=== PATIENT | female | born 1995 | race Caucasian/White ===

== ENCOUNTER 2017-04-28 10:09 | Emergency (ER) | payer OTHER ==
[~2017-04-28] VITALS: Ht 162.6 cm; Wt 50.0 kg
[2017-04-28] MEDS ORDERED: NORCO 325 MG-51 TAB PO (11:12)
[2017-04-28 12:02] VITALS: BP 118/88; PULSE 94; TEMP 18
== END 2017-04-28 12:02 | disposition home or self-care (01) ==
LOC: COL.ER 10:09
DX: S42.002A Fracture of unspecified part of left clavicle, initial encounter for closed fracture (principal); W01.0XXA Fall on same level from slipping, tripping and stumbling without subsequent striking against object, initial encounter; Y92.410 Unspecified street and highway as the place of occurrence of the external cause; Y93.02 Activity, running

== ENCOUNTER 2017-05-24 16:45 | Emergency (ER) | payer OTHER ==
[~2017-05-24] VITALS: Ht 162.6 cm; Wt 48.2 kg
[~2017-05-24 16:45] MED LIST: NORCO 325 MG-51 TAB PO
[2017-05-24 16:50] VITALS: BP 105/57; PULSE 90; TEMP 98.7
[2017-05-24] MEDS ORDERED: ZOFRAN ODT4 MG PO (16:55)
== END 2017-05-24 17:47 | disposition home or self-care (01) ==
LOC: COL.ER 16:45
DX: F07.81 Postconcussional syndrome (principal); Z98.818 Other dental procedure status; Z98.890 Other specified postprocedural states; W18.39XA Other fall on same level, initial encounter; W22.09XA Striking against other stationary object, initial encounter; Y93.02 Activity, running

== ENCOUNTER 2017-05-27 23:15 | Emergency (ER) | payer OTHER ==
[~2017-05-27] VITALS: Ht 162.6 cm; Wt 49.3 kg
[~2017-05-27 23:15] MED LIST changes: +ZOFRAN ODT4 MG PO
[2017-05-27 23:21] VITALS: TEMP 98.1
[2017-05-27] MEDS ORDERED: SPRINTEC 35 MCG1 TAB PO (23:25)
[2017-05-28] MEDS ORDERED: REGLAN 10MG10 MG/TAB PO (01:31)
[2017-05-28] MEDS ORDERED: TYLENOL W/COD1 UDTAB PO (01:31)
[2017-05-28 02:25] VITALS: BP 106/72; PULSE 70
== END 2017-05-28 02:25 | disposition home or self-care (01) ==
LOC: COL.ER 23:15
DX: S09.90XA Unspecified injury of head, initial encounter (principal); W01.198A Fall on same level from slipping, tripping and stumbling with subsequent striking against other object, initial encounter; Y92.002 Bathroom of unspecified non-institutional (private) residence as the place of occurrence of the external cause
CPT/HCPCS: J2765; J3010

== ENCOUNTER → 2017-09-08 | Outpatient (CLI) | payer OTHER ==
[~2017-09-08] MED LIST changes: +REGLAN 10MG10 MG/TAB PO; +SPRINTEC 35 MCG1 TAB PO; +TYLENOL W/COD1 UDTAB PO
== END ==
LOC: COL.RAD 13:30
DX: O36.80X0 Pregnancy with inconclusive fetal viability, not applicable or unspecified (principal); Z3A.08 8 weeks gestation of pregnancy